=== PATIENT | male | born 1995 | race Caucasian/White ===

== ENCOUNTER 2020-06-04 02:06 | Emergency (ER) | payer OTHER ==
[~2020-06-04] VITALS: Ht 175.3 cm; Wt 107.6 kg
[2020-06-04 02:14] VITALS: Ht 175.3 cm; Wt 107.6 kg
[2020-06-04 05:05] VITALS: BP 108/64
== END 2020-06-04 05:05 | disposition home or self-care (01) ==
LOC: ED 02:06
DX: S06.9X9A Unspecified intracranial injury with loss of consciousness of unspecified duration, initial encounter (principal); W22.8XXA Striking against or struck by other objects, initial encounter; Y93.89 Activity, other specified; Y92.89 Other specified places as the place of occurrence of the external cause; Y99.8 Other external cause status
CPT/HCPCS: J1885